=== PATIENT | female | born 1965 | race Caucasian/White ===

== ENCOUNTER 2024-11-25 15:32 | Inpatient (IN) | payer BC, SELFPAY ==
[2024-11-25] VITALS (93 sets, daily range): BP systolic 78–114; BP diastolic 33–75; PULSE 64–124; RESP 11–33; TEMP 36.8–38.2; O2SAT 91–100
--- NOTE | 2024-11-25 15:30 | RT.EKG_ITS ---
APPROVED REPORT Exam: Resting ECG Reason for Exam: weakness Patient Location: E HR:109 bpm ECG Measurements Heart Rate 109 AXIS AK 142 P 60 QRSd 84 QRS 54 QT 312 T 23 QTc 421 Conclusion Sinus tachycardia [address] specifici st change no stemi
--- NOTE | 2024-11-25 15:45 | DI.CT_ITS ---
Exam(s) CT ABDOMEN PELVIS W EXAM: CT ABDOMEN PELVIS W CLINICAL HISTORY: abdominal pain, fever, vomiting. TECHNIQUE: Imaging Protocol: Axial computed tomography images with coronal and sagittal reformatted images were created and reviewed CONTRAST MATERIAL: Intravenous: Omnipaque-350 75cc Oral: None COMPARISON: No exams were available for comparison FINDINGS: VISUALIZED LUNG BASES: Mild subpleural increased markings in both lung bases, specifically in the pos terior basal segments of both lower lobes. There are no pleural effusions. ABDOMEN: There is no ascites. LIVER: There are no focal hepatic lesions evident. No dilated intrahepatic ducts. GALLBLADDER/BILIARY: Gallbladder surgically absent. CBD is not dilated. PANCREAS: No evidence of pancreatic mass nor dilatation of the pancreatic duct. SPLEEN: Spleen is not enlarged. No obvious intrasplenic lesions. Splenic and portal veins are paten t. ADRENALS: There are no significant adrenal masses. KIDNEYS:No cysts evident. No solid renal masses. No calculi nor hydronephrosis.. ABDOMINAL AORTA: Abdominal aorta is not enlarged. LYMPH NODES:There is no retroperitoneal nor paraaortic adenopathy. ABDOMINAL WALL: No evidence of significant anterior abdominal wall nor inguinal hernia. GI: There is no evidence of bowel obstruction, free air, nor abscess. Moderate amount of increased fecal material is noted in the colon and rectum. PELVIS: GI: No evidence of appendicitis.No evidence of sigmoid diverticulitis. LYMPH NODES: There is no intrapelvic nor inguinal adenopathy. REPRODUCTIVE: Uterus retroverted. There are no abnormal adnexal findings. There is no free fluid in the pelvis. URINARY BLADDER: No calculi nor obvious masses evident OSSEOUS: No fractures and no significant osseous lesions. IMPRESSION: 1. Gallbladder surgically absent. The biliary tree is not dilated. 2. No evidence of bowel obstruction, free air, nor abscess. 3. No acute findings in the abdomen pelvis. 4. RADIATION DOSE DELIVERED: 614.81mGy.cm Total DLP DATA REPOSITORY: All CT scans at this facility are submitted to the National Radiology Data Registry (NRDR) Dose Index Registry (DIR) with the [employer] (ACR). RADIATION OPTIMIZATION: All CT scans at this facility use at least one of these dose optimization te chniques: automated exposure control; mA and/or kV adjustment per patient size (includes targeted exa ms where dose is matched to clinical indication); or iterative reconstruction.
--- NOTE | 2024-11-25 15:47 | DI.RAD_ITS ---
Exam(s) XR CHEST 2V PA LATERAL EXAM: XR CHEST 2V PA LATERAL CLINICAL HISTORY: sepsis. TECHNIQUE: 2D digital imaging was performed. COMPARISON: No exams were available for comparison FINDINGS: 2 views: Heart size is normal. The mediastinum is not widened. Lungs are clear. No infiltrates nor pleural effusions. IMPRESSION: No acute pulmonary findings. DATA REPOSITORY: RADIATION DOSE DELIVERED:
[2024-11-25] MEDS: Normal Saline 1,000 ML 1000 ML IV ×2 (15:58→16:31)
[2024-11-25] MEDS: ACETAMINOPHEN 500 MG/50 ML BAG 200 MG IVPB (15:59)
[2024-11-25] MEDS: Hydrocortisone SOD SUC. 100 MG VIAL IVP ×2 (15:59→23:44)
[2024-11-25 16:01] LABS: Abs Immature Grans 0.03 10^3/uL (0.0-0.06); Absolute Basophil Count 0.07 10^3/uL (0.0-0.2); Absolute Eosinophil Count 0.08 10^3/uL (0.0-0.7); Absolute Monocyte Count 1.09 10^3/uL (0.1-0.8); Absolute Neutrophil Count 5.88 10^3/uL (1.2-6.7); Basophils % 0.8 %; Eosinophils % 0.9 %; HCT 46.5 % (36.0-46.0); HGB 15.5 g/dL (11.2-15.7); Immature Grans % 0.3 %; Lymphocytes % 22.7 %; MCH 29.6 pg (27.0-33.0); MCHC 33.3 % (32.0-36.0); MCV 89 fL (80-95); MPV 9.3 fL (8.0-11.0); Monocytes % 11.8 %; Neutrophils % 63.5 %; Platelet Count 250 10^3/uL (130-400); RBC 5.23 10^6/uL (3.93-5.22); RDW 12.4 % (11.7-14.6); RDW-SD 40.7 fL; WBC 9.25 10^3/uL (4.4-10.8)
[2024-11-25 16:02] LABS: BE (Venous) 3 mmol/L (-2-3); HCO3 (Venous) 27 mmol/L (23-28); Lactate 0.9 mmol/L (<or=2.0); O2 Sat (Venous) 65 %; TCO2 (Venous) 24 mmol/L (24-29); pCO2 (Venous) 43 mmHg (41-51); pH (Venous) 7.41 (7.31-7.41); pO2 (Venous) 31 mmHg
[2024-11-25] MEDS: cefTRIAXone 2 GM/50 ML BAG IVPB (16:21)
[2024-11-25 16:31] LABS: ALT 33 U/L (14-59); AST 32 U/L (15-37); Albumin 4.3 g/dL (3.4-5.0); Alkaline Phosphatase 69 U/L (46-116); Anion Gap 8.6 mmol/L (3-11); BUN 19 mg/dL (7-18); Bilirubin, Total 0.9 mg/dL (0.2-1.0); CO2 28.4 mmol/L (21.0-32.0); CREATININE 1.3 mg/dL (0.55-1.02); Calcium 9.6 mg/dL (8.5-10.1); Chloride 97 mmol/L (98-107); Estimated GFR 47.37 (mL/min/1.73m2); Glucose 109 mg/dL (74-106); Lipase 60 U/L (<78); Magnesium 1.6 mg/dL (1.8-2.4); Potassium 3.6 mmol/L (3.5-5.1); Sodium 134 mmol/L (136-145); Total Protein 8.5 g/dL (6.4-8.2); Troponin I 10 ng/L (<or=51)
[2024-11-25] MEDS: Omnipaque 350 MG/ML 100 ML BTL IJ (17:01)
[2024-11-25] MEDS: Normal Saline - Diluent 50 ML VIAL IJ (17:02)
[2024-11-25 17:13] LABS: Bilirubin Negative (Negative); Blood Trace-lysed (Negative); Clarity Clear (Clear); Glucose Negative (Negative); Ketones Negative (Negative); Leukocyte Esterase Negative (Negative); Nitrite Negative (Negative); Specific Gravity 1.015 (1.005-1.025); Urobilinogen 0.2 mg/dL (Up to 0.2); pH 5.5 (5-8)
[2024-11-25] MEDS: Lactated Ringers 1,000 ML 1000 ML IV (17:20)
[2024-11-25 17:33] LABS: Bacteria Rare HPF (Negative); C & S Indicated? No; Casts Negative LPF (Negative); Crystals Negative HPF (Negative); Epithelial Cells Rare HPF (Negative); Mucus Trace (Negative); RBC 0-2 HPF (0-2); WBC Negative HPF (0-5)
[2024-11-25 17:51] LABS: Troponin I 21 ng/L (<or=51)
--- NOTE | 2024-11-25 17:52 | DI.VRAD_ITS ---
PROCEDURE INFORMATION: Exam: XR Chest Exam date and time: 11/25/2024 5:11 PM Age: 59 years old Clinical indication: Other: Sepsis TECHNIQUE: Imaging protocol: Radiologic exam of the chest. Views: 2 views. COMPARISON: CT ABDOMEN PELVIS W 11/25/2024 4:56 PM FINDINGS: Lungs: Unremarkable. No consolidation. Pleural spaces: Unremarkable. No pleural effusion. No pneumothorax. Heart/Mediastinum: Unremarkable. No cardiomegaly. Bones/joints: Unremarkable. IMPRESSION: No acute findings. Dictated and Authenticated by: Ann Vee MD. Orderin Vy Arguelles MD
--- NOTE | 2024-11-25 17:52 | DI.VRAD_ITS ---
PROCEDURE INFORMATION: Exam: CT Abdomen And Pelvis With Contrast Exam date and time: 11/25/2024 4:56 PM Age: 59 years old Clinical indication: Other: Abdominal pain, fever, vomiting TECHNIQUE: Imaging protocol: Computed tomography of the abdomen and pelvis with contrast. Contrast material: 350; Contrast volume: 75 ml; Contrast route: INTRAVENOUS (IV); COMPARISON: No relevant prior studies available. FINDINGS: Lungs: Dependent atelectasis in the lung bases. Liver: Normal. No mass. Gallbladder and biliary ducts: Cholecystectomy. Pancreas: Normal. No ductal dilation. Spleen: Normal. No splenomegaly. Adrenal glands: Normal. No mass. Kidneys and ureters: Normal. No hydronephrosis. Stomach and bowel: Large amount of stool in the colon.. No obstruction. No mucosal thickening. Appendix: No evidence of appendicitis. Intraperitoneal space: Unremarkable. No free air. No significant fluid collection. Vasculature: Unremarkable. No abdominal aortic aneurysm. Lymph nodes: Unremarkable. No enlarged lymph nodes. Urinary bladder: Unremarkable as visualized. Reproductive: Unremarkable as visualized. Bones/joints: Unremarkable. No acute fracture. Soft tissues: Unremarkable. IMPRESSION: No acute findings. Constipation. Dictated and Authenticated by: Ann Vee MD. Orderin Vy Arguelles MD
[2024-11-25] MEDS: Prochlorperazine 10 MG/2 ML VIAL 5 MG IVP (18:27)
--- NOTE | 2024-11-25 18:34 | W.PM.HP.N ---
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 She had no source of infection but appeared septic with tachycardia, hypotension and fever of 38 ?C. MD did not reveal a source of her fever. She had no signs or symptoms of meningismus with her headache and her headache cleared with treatment of her fever. She was initiated on Rocephin 2 g IV every 12 hours and there is no indication for lumbar puncture at the time of admission. She also was initiated on doxycycline 100 mg IV every 12 hours. She was initiated on stress dose steroids with hydrocortisone 100 mg IV every 8 hours. She did require pressor support with normal creatinine in the ED and this was continued in the ICU. She was also IV fluid resuscitated. She will continue on close monitoring in the ICU with blood pressure support, follow-up cultures and continue IV fluids along with a broad-spectrum antibiotic coverage. She is a full code. (2) Adrenal insufficiency: Status: Chronic Assessment and plan: Patient will be placed on stress dose steroids with hydrocortisone 100 mg IV every 8 hours. (3) Oral thrush: Start date: 11/25/24 Status: Acute Assessment and plan: Nystatin oral suspension swish and swallow 3 times daily. (4) Hypothyroidism (acquired): Status: Chronic Assessment and plan: Continue outpatient supplement. TSH was normal. (5) Hypotension, chronic: Status: Chronic Assessment and plan: Continue Florinef with patient now on norepinephrine for blood pressure support because of her fever and acute septic shock. (6) Depression: Status: Chronic Assessment and plan: Continue outpatient sertraline. History of Present Illness History of Present Illness Chief Complaint: Feeling ill for 24 hours with bodyaches, chills and headache. 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 She knows it when she feels ill she needs to be seen in the hospital because of her adrenal insufficiency and need for stress dose steroids as well as full evaluation for complications. She presented to the ED with 24-hour history of feeling ill with bodyaches, chills and headache and did manifest a fever in the ED. She was treated in the ED for her fever and her headache went away with no complaints of stiff neck or signs of meningismus by exam. Full evaluation did not reveal source of fever with tachycardia and hypotension with normal lactate and anion gap. Her creatinine was slightly elevated from her baseline and she had hyponatremia. Her magnesium was also low. She had her magnesium repleted with oral therapy in the ED and an IV therapy once admitted to the ICU. With interview in the ICU the patient said that she always knew to come to the hospital when she felt ill because of her Jackson's disease and the possibility of getting ill quickly. She did take a low-dose of her stress dose steroids at home. In the ED she was given hydrocortisone 100 mg IV. Reviewing her history she did not complain of any cough, urinary symptoms or GI symptoms. She does have chronic hypotension on Florinef with which she has been compliant. She also has hypothyroidism this has been stable on supplement. The patient had a decreased systolic blood pressure below 80 mmHg in the ED and was initiated on norepinephrine. She was admitted to the ICU for close monitoring with broad-spectrum antibiotic coverage after blood cultures, urine culture and tickborne disease screening. She is a full code. Review of Systems Narrative: 13 point review of systems otherwise unrevealing or stable. PFSH All Active Problems (Updated 11/26/24 @ 06:04 by Esteban Whitehead) Oral thrush (Acute) Acute adrenal insufficiency (Acute) Shock (Acute) SIRS (systemic inflammatory response syndrome) (Acute) Depression (Chronic) Hypotension, chronic (Chronic) Hypothyroidism (acquired) (Chronic) Oral thrush (Acute) Adrenal insufficiency (Chronic) Sepsis (Acute) Social History Smoking/Tobacco Use Status: Former Tobacco Use Quit Date: 11/25/86 Tobacco: How many years used: 3 Smoking risk assessment performed?: Yes Alcohol Intake: former Substance use type: does not use Housing: apartment Do you feel safe at home: Yes Do you feel safe in your relationship?: Yes Meds Allergies and Home Medications Allergies Allergy/AdvReac Type Severity Reaction Status Date / Time adhesive tape AdvReac Intermediate Skin Rash Unverified 11/25/24 19:01 Penicillins AdvReac Intermediate Skin Rash Unverified 11/25/24 19:01 sulfamethoxazole (From AdvReac Intermediate mouth sores Unverified 11/25/24 19:01 Sulfamethoxazole-Trimethoprim) trimethoprim (From AdvReac Intermediate mouth sores Unverified 11/25/24 19:01 Sulfamethoxazole-Trimethoprim) Home Medications ?Medication ?Instructions ?Recorded ?Confirmed ?Type B-complex with vitamin C 1 tab PO DAILY 11/25/24 11/25/24 History calcium citrate 600 mg PO DAILY 11/25/24 11/25/24 History cholecalciferol (vitamin D3) 25 25 mcg PO DAILY 11/25/24 11/25/24 History mcg (1,000 unit) capsule cyanocobalamin (vitamin B-12) 125 mcg PO DAILY 11/25/24 11/25/24 History 1,000 mcg capsule fludrocortisone 0.1 mg tablet 0.1 mg PO DAILY 11/25/24 11/25/24 History hydrocortisone 5 mg tablet 5 mg PO BID 11/25/24 11/25/24 History levothyroxine 112 mcg tablet 112 mcg PO DAILY 11/25/24 11/25/24 History melatonin 3 mg capsule 3 mg PO HS PRN 11/25/24 11/25/24 History sertraline 100 mg tablet 100 mg PO DAILY 11/25/24 11/25/24 History simethicone 180 mg capsule 180 mg PO DAILY PRN 11/25/24 11/25/24 History (Anti-Gas Ultra Strength) Exam Narrative Exam Narrative: General: Moderately obese, sleeping when I approached patient but arousable easily with normal conversation. She is in no acute distress. She is alert and oriented x 3. HEENT: Normocephalic, eyes with pupils equal and reactive to light symmetrically, extraocular movement intact and sclera anicteric. Fair dentition. Oropharynx dry with thrush. Neck: Supple without JVD. Back: Kyphotic without CVA tenderness. Lungs: Fair aeration with no focalizing rales or rhonchi. No expiratory wheeze. Breast: Exam deferred. Heart: Regular rate and rhythm with no murmurs gallops appreciated. Abdomen: Slightly obese contour, soft to palpation with no focalizing tenderness or guarding and no rebound. No palpable hepatosplenomegaly. Bowel sounds positive in all quadrants. Genitalia/rectal: Exam deferred. Skin: Normal color, warm and dry. Neuro: Cranial nerves II through XII gross intact, no focalized motor deficits. No tremor. Extremities: Without clubbing, cyanosis or pitting edema. Peripheral pulses intact. Psych: Flattened affect and depressed mood but no abnormal thought processes. Remote and recent memory grossly intact. Results Imaging Imaging Studies: Patient Name: Allison Larry Unit #: [id number] Loc: ER Ordering Provider: Status: REG ER Primary Care Provider: Unknown,Unknown Date of Exam: 11/25/24 Sex: F Exam: CT Abdomen And Pelvis With Contrast Exam date and time: 11/25/2024 4:56 PM Age: 59 years old Clinical indication: Other: Abdominal pain, fever, vomiting TECHNIQUE: Imaging protocol: Computed tomography of the abdomen and pelvis with contrast. Contrast material: 350; Contrast volume: 75 ml; Contrast route: INTRAVENOUS (IV); COMPARISON: No relevant prior studies available. FINDINGS: Lungs: Dependent atelectasis in the lung bases. Liver: Normal. No mass. Gallbladder and biliary ducts: Cholecystectomy. Pancreas: Normal. No ductal dilation. Spleen: Normal. No splenomegaly. Adrenal glands: Normal. No mass. Kidneys and ureters: Normal. No hydronephrosis. Stomach and bowel: Large amount of stool in the colon.. No obstruction. No mucosal thickening. Appendix: No evidence of appendicitis. Intraperitoneal space: Unremarkable. No free air. No significant fluid collection. Vasculature: Unremarkable. No abdominal aortic aneurysm. Lymph nodes: Unremarkable. No enlarged lymph nodes. Urinary bladder: Unremarkable as visualized. Reproductive: Unremarkable as visualized. Bones/joints: Unremarkable. No acute fracture. Soft tissues: Unremarkable. IMPRESSION: No acute findings. Constipation. Exam: XR Chest Exam date and time: 11/25/2024 5:11 PM Age: 59 years old Clinical indication: Other: Sepsis TECHNIQUE: Imaging protocol: Radiologic exam of the chest. Views: 2 views. COMPARISON: CT ABDOMEN PELVIS W 11/25/2024 4:56 PM FINDINGS: Lungs: Unremarkable. No consolidation. Pleural spaces: Unremarkable. No pleural effusion. No pneumothorax. Heart/Mediastinum: Unremarkable. No cardiomegaly. Bones/joints: Unremarkable. IMPRESSION: No acute findings. Labs 11/25/24 15:53 11/25/24 15:53 Labs: Laboratory Results - last 24 hr 11/25/24 11/25/24 11/25/24 15:53 15:53 15:53 WBC 9.25 RBC 5.23 H Hgb 15.5 Hct 46.5 H MCV 89 MCH 29.6 MCHC 33.3 RDW 12.4 Plt Count 250 MPV 9.3 Immature Gran % 0.3 Neutrophils % 63.5 Lymphocytes % 22.7 Monocytes % 11.8 Eosinophils % 0.9 Basophils % 0.8 Nucleated RBC % 0.0 Absolute Neutrophils 5.88 Absolute Lymphocytes 2.10 Absolute Monocytes 1.09 H Absolute Eosinophils 0.08 Absolute Basophils 0.07 VBG pH VBG pCO2 VBG pO2 VBG HCO3 VBG Total CO2 VBG O2 Saturation VBG Base Excess VBG Lactate Sodium 134 L Potassium 3.6 Chloride 97 L Carbon Dioxide 28.4 Anion Gap 8.6 BUN 19 H Creatinine 1.3 H Est GFR (CKD-EPI 2020) 47.37 Glucose 109 H Calcium 9.6 Magnesium 1.6 L Cancelled Total Bilirubin 0.9 AST 32 ALT 33 Alkaline Phosphatase 69 Troponin I 10 Total Protein 8.5 H Albumin 4.3 Lipase 60 TSH 1.00 Cancelled Urine Color Urine Clarity Urine pH Ur Specific [place] Urine Protein Urine Ketones Urine Blood Urine Nitrite Urine Bilirubin Urine Urobilinogen Ur Leukocyte Esterase Urine RBC Urine WBC Ur Epithelial Cells Urine Crystals Urine Bacteria Urine Casts Urine Mucus Ur Culture Indicated? Urine Glucose 11/25/24 11/25/24 11/25/24 15:55 16:57 17:24 WBC RBC Hgb Hct MCV MCH MCHC RDW Plt Count MPV Immature Gran % Neutrophils % Lymphocytes % Monocytes % Eosinophils % Basophils % Nucleated RBC % Absolute Neutrophils Absolute Lymphocytes Absolute Monocytes Absolute Eosinophils Absolute Basophils VBG pH 7.41 VBG pCO2 43 VBG pO2 31 VBG HCO3 27 VBG Total CO2 24 VBG O2 Saturation 65 VBG Base Excess 3 VBG Lactate 0.9 Sodium Potassium Chloride Carbon Dioxide Anion Gap BUN Creatinine Est GFR (CKD-EPI 2020) Glucose Calcium Magnesium Total Bilirubin AST ALT Alkaline Phosphatase Troponin I 21 Total Protein Albumin Lipase TSH Urine Color Yellow Urine Clarity Clear Urine pH 5.5 Ur Specific [place] 1.015 Urine Protein Negative Urine Ketones Negative Urine Blood Trace-lysed H Urine Nitrite Negative Urine Bilirubin Negative Urine Urobilinogen 0.2 Ur Leukocyte Esterase Negative Urine RBC 0-2 Urine WBC Negative Ur Epithelial Cells Rare Urine Crystals Negative Urine Bacteria Rare Urine Casts Negative Urine Mucus Trace Ur Culture Indicated? No Urine Glucose Negative Last Vital Signs Temp 38.2 C H 11/25/24 15:34 Pulse 96 H 11/25/24 18:31 Resp 24 11/25/24 18:31 BP 80/49 L 11/25/24 18:31 Pulse Ox 96 11/25/24 18:31 Time Spent Time spent with Patient: >75 minutes Time was spent: preparing to see the patient(eg.review tests), obtaining and/or reviewing separately otained hiistory, ordering medications,tests, procedures, indepentently interpreting results and care coordination
[2024-11-25] MEDS: Lactated Ringers 500 ML IV (18:47)
[2024-11-25] MEDS: Magnesium Oxide 400 MG TAB 800 MG PO (19:15)
[2024-11-25 19:33] LABS: COVID-19 PCR Negative (Negative); Influenza A PCR Negative (Negative); Influenza B PCR Negative (Negative); RSV PCR Negative (Negative)
[2024-11-25 19:36] LABS: Source Nasopharynx
[2024-11-25] MEDS: Norepinephrine in D5W 8 MG/250 ML BAG 9.375 MG IV (19:43)
--- NOTE | 2024-11-25 20:09 | W.PCEDHO ---
Registration Status: Primary Language: Preferred Language: ED Information & Data Chief Complaint GenMedical 11/25/24 17:14 Chief Complaint GenMedical 11/25/24 15:34 Triage Note Patient complaining of fever 11/25/24 15:34 , vomiting and out of it for 2 days Most Recent Vital Signs Temperature 38.2 C H 11/25/24 15:34 Pulse 72 11/25/24 20:01 Pulse 72 11/25/24 20:01 Respiratory Rate 20 11/25/24 20:01 Respiratory Effort Normal 11/25/24 17:14 Respiratory Depth Normal 11/25/24 17:14 Blood Pressure 106/61 11/25/24 20:00 Blood Pressure Mean 76 11/25/24 20:00 Pulse Oximetry 95 11/25/24 20:01 Comment manual 11/25/24 18:30 Allergies adhesive tape Adverse Reaction (Intermediate, Unverified 11/25/24 19:01) Skin Rash Penicillins Adverse Reaction (Intermediate, Unverified 11/25/24 19:01) Skin Rash sulfamethoxazole (From Sulfamethoxazole-Trimethoprim) Adverse Reaction (Intermediate, Unverified 11/25/24 19:01) mouth sores trimethoprim (From Sulfamethoxazole-Trimethoprim) Adverse Reaction (Intermediate, Unverified 11/25/24 19:01) mouth sores Precautions Isolation Standard precaution 11/25/24 17:14 Active Medications Generic Name Dose Route Start Last Admin Trade Name Freq PRN Reason Stop Dose Admin Ceftriaxone Sodium/Dextrose 2 gm in 50 mls @ 100 mls/hr 11/25/24 16:00 11/25/24 17:21 Rocephin IVPB Infused Q24H PIERRE Infusion Norepinephrine Bitartrate 8 mg in 250 mls @ 9.375 mls/hr 11/25/24 19:45 11/25/24 19:43 IV 5 mcg/min INFUSION PIERRE 9.375 mls/hr Administration Protocol 5 MCG/MIN Iohexol 100 ml 11/25/24 17:15 11/25/24 17:01 Omnipaque 350 Mg/Ml 100 Ml Btl IJ 12/25/24 23:59 75 ml DIRECTED PIERRE Administration Sodium Chloride 50 ml 11/25/24 17:15 11/25/24 17:02 Normal Saline - Diluent 50 Ml Vial IJ 50 ml .FOR DI USE PIERRE Administration IV IV Catheter Type [Left Peripheral IV Antecubital] IV Catheter Type [Right Peripheral IV Antecubital] IV Catheter Gauge [Left 18 Antecubital] IV Catheter Gauge [Right 18 Antecubital] Diagnostics 11/25/24 11/25/24 11/25/24 Range/Units 18:49 17:24 16:57 WBC (4.4-10.8) 10^3/uL RBC (3.93-5.22) 10^6/uL Hgb (11.2-15.7) g/dL Hct (36.0-46.0) % MCV (80-95) fL MCH (27.0-33.0) pg MCHC (32.0-36.0) % RDW (11.7-14.6) % Plt Count (130-400) 10^3/uL MPV (8.0-11.0) fL Immature Gran % % Neutrophils % % Lymphocytes % % Monocytes % % Eosinophils % % Basophils % % Nucleated RBC % (0.0-0.3) % Absolute Neutrophils (1.2-6.7) 10^3/uL Absolute Lymphocytes (1.2-3.4) 10^3/uL Absolute Monocytes (0.1-0.8) 10^3/uL Absolute Eosinophils (0.0-0.7) 10^3/uL Absolute Basophils (0.0-0.2) 10^3/uL VBG pH (7.31-7.41) VBG pCO2 (41-51) mmHg VBG pO2 mmHg VBG HCO3 (23-28) mmol/L VBG Total CO2 (24-29) mmol/L VBG O2 Saturation % VBG Base Excess (-2-3) mmol/L VBG Lactate (<or=2.0) mmol/L Sodium (136-145) mmol/L Potassium (3.5-5.1) mmol/L Chloride (98-107) mmol/L Carbon Dioxide (21.0-32.0) mmol/L Anion Gap (3-11) mmol/L BUN (7-18) mg/dL Creatinine (0.55-1.02) mg/dL Est GFR (CKD-EPI 2020) (mL/min/1.73m2) Glucose (74-106) mg/dL Calcium (8.5-10.1) mg/dL Magnesium (1.8-2.4) mg/dL Total Bilirubin (0.2-1.0) mg/dL AST (15-37) U/L ALT (14-59) U/L Alkaline Phosphatase (46-116) U/L Troponin I 21 (<or=51) ng/L Total Protein (6.4-8.2) g/dL Albumin (3.4-5.0) g/dL Lipase (<78) U/L TSH (0.36-3.74) uIU/mL Urine Color Yellow (Yellow) Urine Clarity Clear (Clear) Urine pH 5.5 (5-8) Ur Specific [place] 1.015 (1.005-1.025) Urine Protein Negative (Neg-Trace) mg/dL Urine Ketones Negative (Negative) mg/dL Urine Blood Trace-lysed H (Negative) Urine Nitrite Negative (Negative) Urine Bilirubin Negative (Negative) Urine Urobilinogen 0.2 (Up to 0.2) mg/dL Ur Leukocyte Esterase Negative (Negative) Urine RBC 0-2 (0-2) HPF Urine WBC Negative (0-5) HPF Ur Epithelial Cells Rare (Negative) HPF Urine Crystals Negative (Negative) HPF Urine Bacteria Rare (Negative) HPF Urine Casts Negative (Negative) LPF Urine Mucus Trace (Negative) Ur Culture Indicated? No Urine Glucose Negative (Negative) mg/dL B. divergens/MO-1 PCR Babesia duncani (PCR) Babesia microti DNA PCR Lyme Disease Antibody COVID-19 Source Nasopharynx SARS-CoV-2 (PCR) Negative (Negative) E.chaffeensis DNA (PCR) E.ewingii/canis DNA PCR E.muris eauclairensis (PCR) Influenza Type A (PCR) Negative (Negative) Influenza Type B (PCR) Negative (Negative) RSV (PCR) Negative (Negative) A. phagocytophilum (PCR) Blood B. miyamotoi (PCR) 11/25/24 11/25/24 11/25/24 Range/Units 15:55 15:53 15:53 WBC (4.4-10.8) 10^3/uL RBC (3.93-5.22) 10^6/uL Hgb (11.2-15.7) g/dL Hct (36.0-46.0) % MCV (80-95) fL MCH (27.0-33.0) pg MCHC (32.0-36.0) % RDW (11.7-14.6) % Plt Count (130-400) 10^3/uL MPV (8.0-11.0) fL Immature Gran % % Neutrophils % % Lymphocytes % % Monocytes % % Eosinophils % % Basophils % % Nucleated RBC % (0.0-0.3) % Absolute Neutrophils (1.2-6.7) 10^3/uL Absolute Lymphocytes (1.2-3.4) 10^3/uL Absolute Monocytes (0.1-0.8) 10^3/uL Absolute Eosinophils (0.0-0.7) 10^3/uL Absolute Basophils (0.0-0.2) 10^3/uL VBG pH 7.41 (7.31-7.41) VBG pCO2 43 (41-51) mmHg VBG pO2 31 mmHg VBG HCO3 27 (23-28) mmol/L VBG Total CO2 24 (24-29) mmol/L VBG O2 Saturation 65 % VBG Base Excess 3 (-2-3) mmol/L VBG Lactate 0.9 (<or=2.0) mmol/L Sodium (136-145) mmol/L Potassium (3.5-5.1) mmol/L Chloride (98-107) mmol/L Carbon Dioxide (21.0-32.0) mmol/L Anion Gap (3-11) mmol/L BUN (7-18) mg/dL Creatinine (0.55-1.02) mg/dL Est GFR (CKD-EPI 2020) (mL/min/1.73m2) Glucose (74-106) mg/dL Calcium (8.5-10.1) mg/dL Magnesium Cancelled (1.8-2.4) mg/dL Total Bilirubin 0.9 (0.2-1.0) mg/dL AST 32 (15-37) U/L ALT 33 (14-59) U/L Alkaline Phosphatase 69 (46-116) U/L Troponin I 10 (<or=51) ng/L Total Protein 8.5 H (6.4-8.2) g/dL Albumin 4.3 (3.4-5.0) g/dL Lipase 60 (<78) U/L TSH Cancelled 1.00 (0.36-3.74) uIU/mL Urine Color (Yellow) Urine Clarity (Clear) Urine pH (5-8) Ur Specific [place] (1.005-1.025) Urine Protein (Neg-Trace) mg/dL Urine Ketones (Negative) mg/dL Urine Blood (Negative) Urine Nitrite (Negative) Urine Bilirubin (Negative) Urine Urobilinogen (Up to 0.2) mg/dL Ur Leukocyte Esterase (Negative) Urine RBC (0-2) HPF Urine WBC (0-5) HPF Ur Epithelial Cells (Negative) HPF Urine Crystals (Negative) HPF Urine Bacteria (Negative) HPF Urine Casts (Negative) LPF Urine Mucus (Negative) Ur Culture Indicated? Urine Glucose (Negative) mg/dL B. divergens/MO-1 PCR Pending Babesia duncani (PCR) Pending Babesia microti DNA PCR Pending Lyme Disease Antibody Pending COVID-19 Source SARS-CoV-2 (PCR) (Negative) E.chaffeensis DNA (PCR) Pending E.ewingii/canis DNA PCR Pending E.muris eauclairensis (PCR) Pending Influenza Type A (PCR) (Negative) Influenza Type B (PCR) (Negative) RSV (PCR) (Negative) A. phagocytophilum (PCR) Pending Blood B. miyamotoi (PCR) Pending 11/25/24 Range/Units 15:53 WBC 9.25 (4.4-10.8) 10^3/uL RBC 5.23 H (3.93-5.22) 10^6/uL Hgb 15.5 (11.2-15.7) g/dL Hct 46.5 H (36.0-46.0) % MCV 89 (80-95) fL MCH 29.6 (27.0-33.0) pg MCHC 33.3 (32.0-36.0) % RDW 12.4 (11.7-14.6) % Plt Count 250 (130-400) 10^3/uL MPV 9.3 (8.0-11.0) fL Immature Gran % 0.3 % Neutrophils % 63.5 % Lymphocytes % 22.7 % Monocytes % 11.8 % Eosinophils % 0.9 % Basophils % 0.8 % Nucleated RBC % 0.0 (0.0-0.3) % Absolute Neutrophils 5.88 (1.2-6.7) 10^3/uL Absolute Lymphocytes 2.10 (1.2-3.4) 10^3/uL Absolute Monocytes 1.09 H (0.1-0.8) 10^3/uL Absolute Eosinophils 0.08 (0.0-0.7) 10^3/uL Absolute Basophils 0.07 (0.0-0.2) 10^3/uL VBG pH (7.31-7.41) VBG pCO2 (41-51) mmHg VBG pO2 mmHg VBG HCO3 (23-28) mmol/L VBG Total CO2 (24-29) mmol/L VBG O2 Saturation % VBG Base Excess (-2-3) mmol/L VBG Lactate (<or=2.0) mmol/L Sodium 134 L (136-145) mmol/L Potassium 3.6 (3.5-5.1) mmol/L Chloride 97 L (98-107) mmol/L Carbon Dioxide 28.4 (21.0-32.0) mmol/L Anion Gap 8.6 (3-11) mmol/L BUN 19 H (7-18) mg/dL Creatinine 1.3 H (0.55-1.02) mg/dL Est GFR (CKD-EPI 2020) 47.37 (mL/min/1.73m2) Glucose 109 H (74-106) mg/dL Calcium 9.6 (8.5-10.1) mg/dL Magnesium 1.6 L (1.8-2.4) mg/dL Total Bilirubin (0.2-1.0) mg/dL AST (15-37) U/L ALT (14-59) U/L Alkaline Phosphatase (46-116) U/L Troponin I (<or=51) ng/L Total Protein (6.4-8.2) g/dL Albumin (3.4-5.0) g/dL Lipase (<78) U/L TSH (0.36-3.74) uIU/mL Urine Color (Yellow) Urine Clarity (Clear) Urine pH (5-8) Ur Specific [place] (1.005-1.025) Urine Protein (Neg-Trace) mg/dL Urine Ketones (Negative) mg/dL Urine Blood (Negative) Urine Nitrite (Negative) Urine Bilirubin (Negative) Urine Urobilinogen (Up to 0.2) mg/dL Ur Leukocyte Esterase (Negative) Urine RBC (0-2) HPF Urine WBC (0-5) HPF Ur Epithelial Cells (Negative) HPF Urine Crystals (Negative) HPF Urine Bacteria (Negative) HPF Urine Casts (Negative) LPF Urine Mucus (Negative) Ur Culture Indicated? Urine Glucose (Negative) mg/dL B. divergens/MO-1 PCR Babesia duncani (PCR) Babesia microti DNA PCR Lyme Disease Antibody COVID-19 Source SARS-CoV-2 (PCR) (Negative) E.chaffeensis DNA (PCR) E.ewingii/canis DNA PCR E.muris eauclairensis (PCR) Influenza Type A (PCR) (Negative) Influenza Type B (PCR) (Negative) RSV (PCR) (Negative) A. phagocytophilum (PCR) Blood B. miyamotoi (PCR) 11/25/24 16:20 Blood Culture - Pending Blood 11/25/24 15:53 Blood Culture - Pending Blood [id number] Documentation Fingerstick Glucose Start: 11/25/24 15:40 Freq: Status: Active Protocol: Activity Type Activity Date Activity User E-sign Co-sign Detail Recorded Client Recorded Date Recorded By Document 11/25/24 15:40 BKG DAWENDYON(10) [id number] 11/25/24 15:40 BKG DAEMON(10) Intake and Output - 24 Hour Total 11/25/24 15:32 thru 11/25/24 19:43 Intake Total 3600 Output Total 670 Balance 2930 Weight 79.379 kg Intake: IV 3600 Output: Urine 670 Other: # Voids 1 Falls Risk Assessment History of Falls No History 11/25/24 17:14 Contributing Factors Unstable 11/25/24 17:14 Ambulatory Aids Independent 11/25/24 17:14 Tubes/Lines With any additional score 11/25/24 17:14 Gait Evaluation No gait disturbance 11/25/24 17:14 Cognition No cognitive impairment 11/25/24 17:14 Fall Total Score 23 11/25/24 17:14 Level of Risk Standard/Low Risk 11/25/24 17:14 Problems Depression (Chronic) Hypotension, chronic (Chronic) Hypothyroidism (acquired) (Chronic) Oral thrush (Acute) Adrenal insufficiency (Acute) Sepsis (Acute) v v v v v v v v v Sending and/or Receiving Nurses: Please use comment section below to note any information pertinent to the patient hand-off not included above. Information / Comments: Report received from: Lindy Page RN
--- NOTE | 2024-11-25 20:59 | W.ED.GENAD ---
Discharge Plan Disposition Patient Disposition: Admit to [facility] Condition: Critical Discharge Details Clinical Impression: SIRS (systemic inflammatory response syndrome), Shock, Acute adrenal insufficiency, Oral thrush Admit Date/Time: 11/25/24 19:15 Admit Provider: Esteban Whitehead Attending Provider: Esteban Whitehead Primary Care Provider: Unknown,Unknown ED Provider: Kindra Mcclellan Discharge Data Discharge Date/Time-TO BE ENTERED AT DEPARTURE: 11/25/24 21:05 HPI General Date/Time Provider Initiated Documentation: 11/25/24 15:39. HPI Narrative: 59-year-old female with adrenal insufficiency/Person's disease and hypothyroidism, presenting with 24-hour history of nausea, vomiting, fever, and chills. Reports fatigue, intermittent headaches, and persistent nausea. No chest discomfort, tick bites, sick contacts, illicit drug use, alcohol consumption, tobacco use, stiff neck, significant neck pain, or urinary symptoms. Did not take stress dose steroids prior to arrival. Similar episode at [facility] in 06/2024 led to admission for suspected kidney injury, exact diagnosis unknown. Related Data Home Medications ?Medication ?Instructions ?Recorded ?Confirmed B-complex with vitamin C 1 tab PO DAILY 11/25/24 11/25/24 calcium citrate 600 mg PO DAILY 11/25/24 11/25/24 cholecalciferol (vitamin D3) 25 25 mcg PO DAILY 11/25/24 11/25/24 mcg (1,000 unit) capsule cyanocobalamin (vitamin B-12) 125 mcg PO DAILY 11/25/24 11/25/24 1,000 mcg capsule fludrocortisone 0.1 mg tablet 0.1 mg PO DAILY 11/25/24 11/25/24 hydrocortisone 5 mg tablet 5 mg PO BID 11/25/24 11/25/24 levothyroxine 112 mcg tablet 112 mcg PO DAILY 11/25/24 11/25/24 melatonin 3 mg capsule 3 mg PO HS PRN 11/25/24 11/25/24 sertraline 100 mg tablet 100 mg PO DAILY 11/25/24 11/25/24 simethicone 180 mg capsule 180 mg PO DAILY PRN 11/25/24 11/25/24 (Anti-Gas Ultra Strength) Allergies Allergy/AdvReac Type Severity Reaction Status Date / Time adhesive tape AdvReac Intermediate Skin Rash Unverified 11/25/24 19:01 Penicillins AdvReac Intermediate Skin Rash Unverified 11/25/24 19:01 sulfamethoxazole (From AdvReac Intermediate mouth sores Unverified 11/25/24 19:01 Sulfamethoxazole-Trimethoprim) trimethoprim (From AdvReac Intermediate mouth sores Unverified 11/25/24 19:01 Sulfamethoxazole-Trimethoprim) General Stated Complaint: GenMedical CHASE: 2 Exam Narrative Exam Narrative: General Appearance: Unwell, alert but tired, oriented x3. Vital signs: Within normal limits. HEENT: Pupils equal, round, reactive to light and accommodation. No meningismus. Respiratory: Lungs clear to auscultation. Cardiovascular: Sinus tachycardia, no murmur rub. Skin: No rashes or lesions. Neurological: Normal. Course Vital Signs Vital signs: Vital Signs Temperature 38.2 C H 11/25/24 15:34 Pulse 124 H 11/25/24 15:34 Blood Pressure 88/63 L 11/25/24 15:34 Pulse Oximetry 93 11/25/24 15:34 Temperature 37.0 C 11/25/24 20:15 Pulse 79 11/25/24 20:15 Pulse 80 11/25/24 20:15 Respiratory Rate 20 11/25/24 20:15 Respiratory Effort Normal 11/25/24 17:14 Respiratory Depth Normal 11/25/24 17:14 Blood Pressure 111/57 L 11/25/24 20:15 Blood Pressure Mean 75 11/25/24 20:15 Pulse Oximetry 97 11/25/24 20:15 Comment manual 11/25/24 18:30 Lab/Test Results Lab/Test Results: 11/25/24 16:20 Blood Blood Culture - Pending 11/25/24 15:53 Blood Blood Culture - Pending Laboratory Tests Range/Units 11/25/24 11/25/24 11/25/24 15:53 15:53 15:53 WBC (4.4-10.8) 10^3/uL 9.25 RBC (3.93-5.22) 10^6/uL 5.23 H Hgb (11.2-15.7) g/dL 15.5 Hct (36.0-46.0) % 46.5 H MCV (80-95) fL 89 MCH (27.0-33.0) pg 29.6 MCHC (32.0-36.0) % 33.3 RDW (11.7-14.6) % 12.4 Plt Count (130-400) 10^3/uL 250 MPV (8.0-11.0) fL 9.3 Immature Gran % % 0.3 Neutrophils % % 63.5 Lymphocytes % % 22.7 Monocytes % % 11.8 Eosinophils % % 0.9 Basophils % % 0.8 Nucleated RBC % (0.0-0.3) % 0.0 Absolute Neutrophils (1.2-6.7) 10^3/uL 5.88 Absolute Lymphocytes (1.2-3.4) 10^3/uL 2.10 Absolute Monocytes (0.1-0.8) 10^3/uL 1.09 H Absolute Eosinophils (0.0-0.7) 10^3/uL 0.08 Absolute Basophils (0.0-0.2) 10^3/uL 0.07 VBG pH (7.31-7.41) VBG pCO2 (41-51) mmHg VBG pO2 mmHg VBG HCO3 (23-28) mmol/L VBG Total CO2 (24-29) mmol/L VBG O2 Saturation % VBG Base Excess (-2-3) mmol/L VBG Lactate (<or=2.0) mmol/L Sodium (136-145) mmol/L 134 L Potassium (3.5-5.1) mmol/L 3.6 Chloride (98-107) mmol/L 97 L Carbon Dioxide (21.0-32.0) mmol/L 28.4 Anion Gap (3-11) mmol/L 8.6 BUN (7-18) mg/dL 19 H Creatinine (0.55-1.02) mg/dL 1.3 H Est GFR (CKD-EPI 2020) (mL/min/1.73m2) 47.37 Glucose (74-106) mg/dL 109 H Calcium (8.5-10.1) mg/dL 9.6 Magnesium (1.8-2.4) mg/dL 1.6 L Cancelled Total Bilirubin (0.2-1.0) mg/dL 0.9 AST (15-37) U/L 32 ALT (14-59) U/L 33 Alkaline Phosphatase (46-116) U/L 69 Troponin I (<or=51) ng/L 10 Total Protein (6.4-8.2) g/dL 8.5 H Albumin (3.4-5.0) g/dL 4.3 Lipase (<78) U/L 60 TSH (0.36-3.74) uIU/mL 1.00 Cancelled Urine Color (Yellow) Urine Clarity (Clear) Urine pH (5-8) Ur Specific [place] (1.005-1.025) Urine Protein (Neg-Trace) mg/dL Urine Ketones (Negative) mg/dL Urine Blood (Negative) Urine Nitrite (Negative) Urine Bilirubin (Negative) Urine Urobilinogen (Up to 0.2) mg/dL Ur Leukocyte Esterase (Negative) Urine RBC (0-2) HPF Urine WBC (0-5) HPF Ur Epithelial Cells (Negative) HPF Urine Crystals (Negative) HPF Urine Bacteria (Negative) HPF Urine Casts (Negative) LPF Urine Mucus (Negative) Ur Culture Indicated? Urine Glucose (Negative) mg/dL COVID-19 Source SARS-CoV-2 (PCR) (Negative) Influenza Type A (PCR) (Negative) Influenza Type B (PCR) (Negative) RSV (PCR) (Negative) Range/Units 11/25/24 11/25/24 11/25/24 15:55 16:57 17:24 WBC (4.4-10.8) 10^3/uL RBC (3.93-5.22) 10^6/uL Hgb (11.2-15.7) g/dL Hct (36.0-46.0) % MCV (80-95) fL MCH (27.0-33.0) pg MCHC (32.0-36.0) % RDW (11.7-14.6) % Plt Count (130-400) 10^3/uL MPV (8.0-11.0) fL Immature Gran % % Neutrophils % % Lymphocytes % % Monocytes % % Eosinophils % % Basophils % % Nucleated RBC % (0.0-0.3) % Absolute Neutrophils (1.2-6.7) 10^3/uL Absolute Lymphocytes (1.2-3.4) 10^3/uL Absolute Monocytes (0.1-0.8) 10^3/uL Absolute Eosinophils (0.0-0.7) 10^3/uL Absolute Basophils (0.0-0.2) 10^3/uL VBG pH (7.31-7.41) 7.41 VBG pCO2 (41-51) mmHg 43 VBG pO2 mmHg 31 VBG HCO3 (23-28) mmol/L 27 VBG Total CO2 (24-29) mmol/L 24 VBG O2 Saturation % 65 VBG Base Excess (-2-3) mmol/L 3 VBG Lactate (<or=2.0) mmol/L 0.9 Sodium (136-145) mmol/L Potassium (3.5-5.1) mmol/L Chloride (98-107) mmol/L Carbon Dioxide (21.0-32.0) mmol/L Anion Gap (3-11) mmol/L BUN (7-18) mg/dL Creatinine (0.55-1.02) mg/dL Est GFR (CKD-EPI 2020) (mL/min/1.73m2) Glucose (74-106) mg/dL Calcium (8.5-10.1) mg/dL Magnesium (1.8-2.4) mg/dL Total Bilirubin (0.2-1.0) mg/dL AST (15-37) U/L ALT (14-59) U/L Alkaline Phosphatase (46-116) U/L Troponin I (<or=51) ng/L 21 Total Protein (6.4-8.2) g/dL Albumin (3.4-5.0) g/dL Lipase (<78) U/L TSH (0.36-3.74) uIU/mL Urine Color (Yellow) Yellow Urine Clarity (Clear) Clear Urine pH (5-8) 5.5 Ur Specific [place] (1.005-1.025) 1.015 Urine Protein (Neg-Trace) mg/dL Negative Urine Ketones (Negative) mg/dL Negative Urine Blood (Negative) Trace-lysed H Urine Nitrite (Negative) Negative Urine Bilirubin (Negative) Negative Urine Urobilinogen (Up to 0.2) mg/dL 0.2 Ur Leukocyte Esterase (Negative) Negative Urine RBC (0-2) HPF 0-2 Urine WBC (0-5) HPF Negative Ur Epithelial Cells (Negative) HPF Rare Urine Crystals (Negative) HPF Negative Urine Bacteria (Negative) HPF Rare Urine Casts (Negative) LPF Negative Urine Mucus (Negative) Trace Ur Culture Indicated? No Urine Glucose (Negative) mg/dL Negative COVID-19 Source SARS-CoV-2 (PCR) (Negative) Influenza Type A (PCR) (Negative) Influenza Type B (PCR) (Negative) RSV (PCR) (Negative) Range/Units 11/25/24 18:49 WBC (4.4-10.8) 10^3/uL RBC (3.93-5.22) 10^6/uL Hgb (11.2-15.7) g/dL Hct (36.0-46.0) % MCV (80-95) fL MCH (27.0-33.0) pg MCHC (32.0-36.0) % RDW (11.7-14.6) % Plt Count (130-400) 10^3/uL MPV (8.0-11.0) fL Immature Gran % % Neutrophils % % Lymphocytes % % Monocytes % % Eosinophils % % Basophils % % Nucleated RBC % (0.0-0.3) % Absolute Neutrophils (1.2-6.7) 10^3/uL Absolute Lymphocytes (1.2-3.4) 10^3/uL Absolute Monocytes (0.1-0.8) 10^3/uL Absolute Eosinophils (0.0-0.7) 10^3/uL Absolute Basophils (0.0-0.2) 10^3/uL VBG pH (7.31-7.41) VBG pCO2 (41-51) mmHg VBG pO2 mmHg VBG HCO3 (23-28) mmol/L VBG Total CO2 (24-29) mmol/L VBG O2 Saturation % VBG Base Excess (-2-3) mmol/L VBG Lactate (<or=2.0) mmol/L Sodium (136-145) mmol/L Potassium (3.5-5.1) mmol/L Chloride (98-107) mmol/L Carbon Dioxide (21.0-32.0) mmol/L Anion Gap (3-11) mmol/L BUN (7-18) mg/dL Creatinine (0.55-1.02) mg/dL Est GFR (CKD-EPI 2020) (mL/min/1.73m2) Glucose (74-106) mg/dL Calcium (8.5-10.1) mg/dL Magnesium (1.8-2.4) mg/dL Total Bilirubin (0.2-1.0) mg/dL AST (15-37) U/L ALT (14-59) U/L Alkaline Phosphatase (46-116) U/L Troponin I (<or=51) ng/L Total Protein (6.4-8.2) g/dL Albumin (3.4-5.0) g/dL Lipase (<78) U/L TSH (0.36-3.74) uIU/mL Urine Color (Yellow) Urine Clarity (Clear) Urine pH (5-8) Ur Specific [place] (1.005-1.025) Urine Protein (Neg-Trace) mg/dL Urine Ketones (Negative) mg/dL Urine Blood (Negative) Urine Nitrite (Negative) Urine Bilirubin (Negative) Urine Urobilinogen (Up to 0.2) mg/dL Ur Leukocyte Esterase (Negative) Urine RBC (0-2) HPF Urine WBC (0-5) HPF Ur Epithelial Cells (Negative) HPF Urine Crystals (Negative) HPF Urine Bacteria (Negative) HPF Urine Casts (Negative) LPF Urine Mucus (Negative) Ur Culture Indicated? Urine Glucose (Negative) mg/dL COVID-19 Source Nasopharynx SARS-CoV-2 (PCR) (Negative) Negative Influenza Type A (PCR) (Negative) Negative Influenza Type B (PCR) (Negative) Negative RSV (PCR) (Negative) Negative Medical Decision Making Creatinine mildly elevated at 1.3, BUN 19, Magnesium 1.6 (supplemented with 1 g). Remainder of labs and urinalysis normal. Negative lactate. CT abdomen and pelvis, chest x-ray without acute abnormality. Initial Assessment: 59-year-old female with history of adrenal insufficiency/Hugo's disease and hypothyroidism presents with nausea, vomiting, fever, and chills for the past 24 hours. Patient appears unwell, alert but tired, oriented x 3, no rashes or lesions, no meningismus, sinus tachycardia, lungs clear to auscultation, creatinine mildly elevated at 1.3, BUN of 19, mag 1.6, supplemented with 1 g of magnesium. Remainder of labs and urinalysis do not show evidence of acute abnormality. ED Course: - Chest x-ray without acute abnormality. - CT abdomen and pelvis per radiology interpretation, my review does not show evidence of acute abnormality. - Received 100 mg hydrocortisone on arrival for stress dose steroid. - Received Compazine. - Received 2.5 L of fluid. - MAP remained at 47, initiated norepinephrine. - Two large bore peripheral IVs, short course anticipated. - Blood cultures pending. - Lyme titers pending. - Lactate negative. - Case discussed with admitting hospitalist, will admit patient to a service. - Reviewed [facility] documentation and medical history for 10 minutes. Final Assessment: Patient with nausea, vomiting, fever, and chills for the past 24 hours. Received Compazine, fluids, hydrocortisone, and norepinephrine. No obvious bacterial infection, blood cultures and Lyme titers pending. Patient to be admitted. Alert and oriented, tired appearance, feeling improved. Clinical Impression: - Nausea and vomiting - Adrenal insufficiency/Hugo's disease - Hypothyroidism Disposition: - Admission: Patient will be admitted to a service. MDM Components Evaluation: - Number of Differential Diagnoses or Management Options: Nausea and vomiting, adrenal insufficiency/Hugo's disease, hypothyroidism. - Amount and Complexity of Data Reviewed: Chest x-ray, CT abdomen and pelvis, blood cultures, Lyme titers, lactate, [facility] documentation and medical history. - Risk of Complication and Morbidity or Mortality: High risk due to hypotension, adrenal insufficiency, and potential infection. Quality:SDOH Health Related Social Needs: No Data to Display Critical Care Time Critical Care Time Attestation: 50 minutes of critical care time secondary to adrenal insufficiency with SIRS hypotension and shock, requiring pressors fluids telemetry monitoring diagnostic imaging interpretation review diagnostic labs interpretation review admission to the ICU, antibiotics IV steroids PFSH All Active Problems (Updated 11/25/24 @ 21:09 by ZANA Prajapati) Oral thrush (Acute) Acute adrenal insufficiency (Acute) Shock (Acute) SIRS (systemic inflammatory response syndrome) (Acute) Depression (Chronic) Hypotension, chronic (Chronic) Hypothyroidism (acquired) (Chronic) Oral thrush (Acute) Adrenal insufficiency (Acute) Sepsis (Acute) Social History Smoking/Tobacco Use Status: Former Tobacco Use Quit Date: 11/25/86 Tobacco: How many years used: 3 Smoking risk assessment performed?: Yes Alcohol Intake: former Substance use type: does not use Housing: apartment Do you feel safe at home: Yes Do you feel safe in your relationship?: Yes
[2024-11-25] MEDS: DOXYCYCLINE 100 MG in Normal Saline 100 ML IVPB (22:14)
[2024-11-25] MEDS: Normal Saline 1,000 ML 150 ML IV (22:14)
[2024-11-25] MEDS: Enoxaparin 40 MG/0.4 ML SYR SC (22:15)
[2024-11-25] MEDS: Normal Saline Flush 10 ML SYR IVP (22:17)
[2024-11-25] MEDS: Nystatin 500000 UNITS/5 ML SUSP 5ML CUP 1000000 UNITS PO (22:22)
[2024-11-25] MEDS: MAGNESIUM SULFATE 2 GM/50 ML BAG IV_INF (22:22)
[2024-11-26] VITALS (103 sets, daily range): BP systolic 88–124; BP diastolic 52–68; PULSE 53–90; RESP 12–33; TEMP 36.7–38; O2SAT 95–100
[2024-11-26] MEDS: Normal Saline 1,000 ML 150 ML IV ×3 (05:48→19:38)
[2024-11-26] MEDS: cefTRIAXone 2 GM/50 ML BAG IVPB ×2 (05:49→18:32)
[2024-11-26] MEDS: Levothyroxine 112 MCG TAB PO (05:53)
[2024-11-26] MEDS: Acetaminophen 325 MG TAB PO (05:57)
[2024-11-26 07:06] LABS: HCT 34.4 % (36.0-46.0); HGB 11.4 g/dL (11.2-15.7); MCH 29.2 pg (27.0-33.0); MCHC 33.1 % (32.0-36.0); MCV 88 fL (80-95); MPV 9.4 fL (8.0-11.0); Platelet Count 219 10^3/uL (130-400); RBC 3.91 10^6/uL (3.93-5.22); RDW 12.3 % (11.7-14.6); RDW-SD 39.6 fL; WBC 11.71 10^3/uL (4.4-10.8)
[2024-11-26 07:33] LABS: ALT 27 U/L (14-59); AST 35 U/L (15-37); Albumin 2.9 g/dL (3.4-5.0); Alkaline Phosphatase 51 U/L (46-116); Anion Gap 7.4 mmol/L (3-11); BUN 12 mg/dL (7-18); Bilirubin, Total 0.4 mg/dL (0.2-1.0); CO2 25.6 mmol/L (21.0-32.0); CREATININE 0.9 mg/dL (0.55-1.02); Chloride 105 mmol/L (98-107); Estimated GFR 73.64 (mL/min/1.73m2); Glucose 112 mg/dL (74-106); Potassium 3.6 mmol/L (3.5-5.1); Sodium 138 mmol/L (136-145); Total Protein 6.3 g/dL (6.4-8.2)
[2024-11-26 07:40] LABS: Magnesium 1.8 mg/dL (1.8-2.4)
[2024-11-26] MEDS: Nystatin 500000 UNITS/5 ML SUSP 5ML CUP 1000000 UNITS PO ×3 (08:00→21:54)
[2024-11-26] MEDS: Sertraline 100 MG TAB PO (08:04)
[2024-11-26] MEDS: Cholecalciferol (Vitamin D3) 1,000 UNIT TAB 1000 UNITS PO (08:04)
[2024-11-26] MEDS: Hydrocortisone SOD SUC. 100 MG VIAL IVP ×3 (08:04→23:03)
[2024-11-26] MEDS: Normal Saline Flush 10 ML SYR IVP ×2 (08:07→21:55)
[2024-11-26] MEDS: Fludrocortisone 0.1 MG TAB PO (08:54)
[2024-11-26] MEDS: Cyanocobalamin 100 MCG TABLET PO (08:56)
[2024-11-26] MEDS: DOXYCYCLINE 100 MG in Normal Saline 100 ML IVPB (09:50)
--- NOTE | 2024-11-26 10:09 | INITIAL_ITS ---
Date of service: 11/26/24 Time of Service: 10:09 Care Management Initial Assmt Initial Assessment Reason for Hospitalization: Addisons Disease Functional Status/Living Situation Patient Presentation: Allison was sitting up in bed when CM met with her. She was pleasant in interaction and easily engaged with CM. Allison was admitted with sepsis. She was tachycardic and hypotensive and is requiring a nor-epinephrine drip to maintain her SBP>90. She stated that she is feeling a little better but has been very weak and fatigued. She shared that she currently lives in [place] but will be moving in with her boyfriend who lives in [facility] this month. Allison has one child, a son named Sancho, who lives in [place]. Allison talked a bit about Sancho and she is clearly very proud of him. He is working at [employer] and plans to attend medical school. Allison has been working at [email or web address] in [place] but has given her notice. She hopes to be able to do [employer] when she moves. She is independent at baseline and does not receive any services. Allison currently has healthcare insurance but will lose coverage at the end of the month. CM sent a referral to [facility] for assistance with insurance. She may be eligible for Medicaid even though she receives disability payments of about $1400/month. CM will follow. Town of Residence: [place] Resides with: Alone Significant Other/Family: Out of area (son in [place]) Natural Supports: boyfriend Jaguar Bashir Employment Status: Employed Instrumental Activities of Daily Living (ADLs): Independent Medications Medication Management: No Issues/Barriers identified Physical Functioning/Mobility Assistive Device: none Advance Directives Advance Directives: Do you have an Advance Directive: Y 11/25/24 21:00 AD On File at [facility]: N 11/25/24 15:40 Date Asked 11/25/24 11/25/24 15:40 AD Date Reviewed COLST On File at [facility] COLST Date Scanned Code Status Resuscitation Status Full Code Portal Pt does not currently have a portal and education provided: Yes Insurance Coverage/Financial Issues Insurance: BC/BS Care Team Visit Care Team Role Provider Type Ricki Salgado MD [facility] STAFF PHYSICIAN Unknown Unknown Primary Care Provider STAFF PHYSICIAN ZANA Prajapati Emergency Provider PHYSICIANS FINANCIAL QUANTITATIVE ANALYST Esteban Whitehead Admit Provider NON-[facility] STAFF PHYSICIAN Attending Provider Discharge Potential Discharge Needs: PCP F/U Appt Anticipated Barriers to Discharge: None Identified Patient/Family Education Needs: Review discharge instructions, discuss Ask Me Three Transportation: Private vehicle Plan: Anticipate Allison will be discharged home with no new services when medically stable. She will follow up with her community providers and plan of care and transport with family. CM will continue to support Allison and her discharge planning needs. Social Determinants of Health Screening Social Determinants of health last assessed in clinic: 11/25/24 Will the Patient Participate in the Screening?: Declined to provide Do you worry about having a steady place to live?: no Problems where you live: no known problems In the past 12 months, have you had to go without electric, gas, oil or water in your home?: no Has lack of transportation kept you from medical appointments or from doing things needed for daily living?: no Has anyone in your life made you feel unsafe or unsupported?: no How hard is it for you to pay for the very basics like food, housing, medical care, and heating? Would you say it is:: Not hard at all Do you want help finding or keeping work or a job?: I do not need or want help If for any reason you need help with day-to-day activities such as bathing, preparing meals, shopping, managing finances, etc., do you get the help you need?: I don?t need any help How often do you feel lonely or isolated from those around you?: Never Do you speak a language other than Frisian at home?: No Comments: pt states she is tired at this time an is in the process of moving now PFS All Active Problems (Updated 11/26/24 @ 11:27 by Ricki Salgado) Hypomagnesemia (Acute) Acute kidney injury (Acute) DVT prophylaxis (Acute) Septic shock (Acute) Oral thrush (Acute) Acute adrenal insufficiency (Acute) Shock (Acute) SIRS (systemic inflammatory response syndrome) (Acute) Depression (Chronic) Hypotension, chronic (Chronic) Hypothyroidism (acquired) (Chronic) Oral thrush (Acute) Adrenal insufficiency (Chronic) Sepsis (Acute) Social History Smoking/Tobacco Use Status: Former Tobacco Use Quit Date: 11/25/86 Tobacco: How many years used: 3 Smoking risk assessment performed?: Yes Alcohol Intake: former Substance use type: does not use Housing: apartment Do you feel safe at home: Yes Do you feel safe in your relationship?: Yes
--- NOTE | 2024-11-26 11:16 | PGE_ITS ---
Date of Service Date of service: 11/26/24 Time of Service: 11:16 Assessment and Plan Assessment and plan (1) Septic shock: Status: Acute Assessment and plan: Fever, hypotension, ADELA in setting of + blood cultures. Hypotensive despite fluids, on norepinephrine ggt Clinically improved this morning GPC chains and sore throat suggest strep. Rapid negative, culture sent Right tonsil a little more prominent but doesn't look like peritonsilar abscess. Continue to monitor. On ceftriaxone/doxy. This is not typically sufficient for septic shock but she has improved on this so will continue for now. tick panel pending as well (2) Adrenal insufficiency: Status: Chronic Assessment and plan: With shock she is on hydrocortisone 100 mg IV every 8 hours along with chronic fludricortisone. Taper steroid once hypotension resolves. (3) Oral thrush: Start date: 11/25/24 Status: Acute Assessment and plan: I'm not sure this is thrush vs bacterial pharyngitis. Can continue nystatin oral suspension swish and swallow 3 times daily. (4) Depression: Status: Chronic Assessment and plan: Continue outpatient sertraline. (5) DVT prophylaxis: Status: Acute Assessment and plan: enoxaparin (6) Acute kidney injury: Status: Acute Assessment and plan: Improved after hydration, c/w pre-renal. Follow (7) Hypomagnesemia: Status: Acute Assessment and plan: replaced, improved, follow daily Subjective Subjective Patient reports: feels better, tolerating a regular diet and voiding w/o difficulty; denies diarrhea, nausea, vomiting, shortness of breath or fever Interval history since last seen: Events: blood cultures GPC chains. She feels better this morning, ate well, was hungry. Throat still a little sore more on right. Swallowing fine Exam Narrative Exam Narrative: General Appearance: Alert and oriented x3, no acute distress. Normal voice. HEENT: MMM, OP red with 2+ tonsils, slightly larger on right. neck supple nl ROM but + right LAD anterior cervical Respiratory: Lungs clear to auscultation, nl effort Cardiovascular: Sinus tachycardia, no murmur rub. ABD: soft, NT/ND Ext: no c/c/e Skin: No rashes or lesions. Objective Last Vital Signs Temp 37.2 C 11/26/24 10:16 Pulse 75 11/26/24 10:16 Resp 15 11/26/24 08:40 BP 99/56 L 11/26/24 10:16 Pulse Ox 96 11/26/24 08:40 Laboratory Results - last 24 hr 11/25/24 11/25/24 11/25/24 15:53 15:53 15:53 WBC 9.25 RBC 5.23 H Hgb 15.5 Hct 46.5 H MCV 89 MCH 29.6 MCHC 33.3 RDW 12.4 Plt Count 250 MPV 9.3 Immature Gran % 0.3 Neutrophils % 63.5 Lymphocytes % 22.7 Monocytes % 11.8 Eosinophils % 0.9 Basophils % 0.8 Nucleated RBC % 0.0 Absolute Neutrophils 5.88 Absolute Lymphocytes 2.10 Absolute Monocytes 1.09 H Absolute Eosinophils 0.08 Absolute Basophils 0.07 VBG pH VBG pCO2 VBG pO2 VBG HCO3 VBG Total CO2 VBG O2 Saturation VBG Base Excess VBG Lactate Sodium 134 L Potassium 3.6 Chloride 97 L Carbon Dioxide 28.4 Anion Gap 8.6 BUN 19 H Creatinine 1.3 H Est GFR (CKD-EPI 2020) 47.37 Glucose 109 H Calcium 9.6 Magnesium 1.6 L Cancelled Total Bilirubin 0.9 AST 32 ALT 33 Alkaline Phosphatase 69 Troponin I 10 Total Protein 8.5 H Albumin 4.3 Lipase 60 TSH 1.00 Cancelled Urine Color Urine Clarity Urine pH Ur Specific Appling Urine Protein Urine Ketones Urine Blood Urine Nitrite Urine Bilirubin Urine Urobilinogen Ur Leukocyte Esterase Urine RBC Urine WBC Ur Epithelial Cells Urine Crystals Urine Bacteria Urine Casts Urine Mucus Ur Culture Indicated? Urine Glucose COVID-19 Source SARS-CoV-2 (PCR) Influenza Type A (PCR) Influenza Type B (PCR) RSV (PCR) 11/25/24 11/25/24 11/25/24 15:55 16:57 17:24 WBC RBC Hgb Hct MCV MCH MCHC RDW Plt Count MPV Immature Gran % Neutrophils % Lymphocytes % Monocytes % Eosinophils % Basophils % Nucleated RBC % Absolute Neutrophils Absolute Lymphocytes Absolute Monocytes Absolute Eosinophils Absolute Basophils VBG pH 7.41 VBG pCO2 43 VBG pO2 31 VBG HCO3 27 VBG Total CO2 24 VBG O2 Saturation 65 VBG Base Excess 3 VBG Lactate 0.9 Sodium Potassium Chloride Carbon Dioxide Anion Gap BUN Creatinine Est GFR (CKD-EPI 2020) Glucose Calcium Magnesium Total Bilirubin AST ALT Alkaline Phosphatase Troponin I 21 Total Protein Albumin Lipase TSH Urine Color Yellow Urine Clarity Clear Urine pH 5.5 Ur Specific Appling 1.015 Urine Protein Negative Urine Ketones Negative Urine Blood Trace-lysed H Urine Nitrite Negative Urine Bilirubin Negative Urine Urobilinogen 0.2 Ur Leukocyte Esterase Negative Urine RBC 0-2 Urine WBC Negative Ur Epithelial Cells Rare Urine Crystals Negative Urine Bacteria Rare Urine Casts Negative Urine Mucus Trace Ur Culture Indicated? No Urine Glucose Negative COVID-19 Source SARS-CoV-2 (PCR) Influenza Type A (PCR) Influenza Type B (PCR) RSV (PCR) 11/25/24 11/26/24 11/26/24 18:49 06:45 07:00 WBC 11.71 H RBC 3.91 L Hgb 11.4 D Hct 34.4 L MCV 88 MCH 29.2 MCHC 33.1 RDW 12.3 Plt Count 219 MPV 9.4 Immature Gran % Neutrophils % Lymphocytes % Monocytes % Eosinophils % Basophils % Nucleated RBC % Absolute Neutrophils Absolute Lymphocytes Absolute Monocytes Absolute Eosinophils Absolute Basophils VBG pH VBG pCO2 VBG pO2 VBG HCO3 VBG Total CO2 VBG O2 Saturation VBG Base Excess VBG Lactate Sodium 138 Potassium 3.6 Chloride 105 Carbon Dioxide 25.6 Anion Gap 7.4 BUN 12 Creatinine 0.9 Est GFR (CKD-EPI 2020) 73.64 Glucose 112 H Calcium 8.0 L Magnesium 1.8 Total Bilirubin 0.4 AST 35 ALT 27 Alkaline Phosphatase 51 Troponin I Total Protein 6.3 L Albumin 2.9 L Lipase TSH Urine Color Urine Clarity Urine pH Ur Specific Appling Urine Protein Urine Ketones Urine Blood Urine Nitrite Urine Bilirubin Urine Urobilinogen Ur Leukocyte Esterase Urine RBC Urine WBC Ur Epithelial Cells Urine Crystals Urine Bacteria Urine Casts Urine Mucus Ur Culture Indicated? Urine Glucose COVID-19 Source Nasopharynx SARS-CoV-2 (PCR) Negative Influenza Type A (PCR) Negative Influenza Type B (PCR) Negative RSV (PCR) Negative Time Spent with Patient Time Spent with Patient: >50 minutes Time was spent: preparing to see the patient(eg.review tests), obtaining and/or reviewing separately otained hiistory, ordering medications,tests, procedures, referring, communicating with other health patient care manager, indepentently interpreting results, counseling the patient and care coordination
[2024-11-26] MEDS: DOXYCYCLINE 100 MG in Normal Saline 100 ML 200 MG IVPB (21:54)
[2024-11-26] MEDS: Enoxaparin 40 MG/0.4 ML SYR SC (21:55)
[2024-11-26] MEDS: Melatonin 3 MG TAB PO (23:02)
[2024-11-27] VITALS (63 sets, daily range): BP systolic 78–118; BP diastolic 28–71; PULSE 60–87; RESP 8–34; TEMP 36.5–37.6; O2SAT 97–100
[2024-11-27] MEDS: cefTRIAXone 2 GM/50 ML BAG IVPB ×2 (05:36→18:25)
[2024-11-27] MEDS: Levothyroxine 112 MCG TAB PO (05:37)
[2024-11-27 07:10] LABS: Abs Immature Grans 0.07 10^3/uL (0.0-0.06); Absolute Basophil Count 0.02 10^3/uL (0.0-0.2); Absolute Lymphocyte Count 0.93 10^3/uL (1.2-3.4); Absolute Monocyte Count 0.33 10^3/uL (0.1-0.8); Absolute Neutrophil Count 8.56 10^3/uL (1.2-6.7); Basophils % 0.2 %; HCT 32.4 % (36.0-46.0); HGB 10.7 g/dL (11.2-15.7); Immature Grans % 0.7 %; Lymphocytes % 9.4 %; MCH 29.3 pg (27.0-33.0); MCV 89 fL (80-95); MPV 10.2 fL (8.0-11.0); Monocytes % 3.3 %; Neutrophils % 86.4 %; Platelet Count 207 10^3/uL (130-400); RBC 3.65 10^6/uL (3.93-5.22); RDW 12.5 % (11.7-14.6); WBC 9.91 10^3/uL (4.4-10.8)
[2024-11-27 07:21] LABS: Magnesium 1.6 mg/dL (1.8-2.4)
[2024-11-27 07:42] LABS: ALT 38 U/L (14-59); AST 31 U/L (15-37); Albumin 2.8 g/dL (3.4-5.0); Alkaline Phosphatase 48 U/L (46-116); Anion Gap 9.8 mmol/L (3-11); BUN 10 mg/dL (7-18); Bilirubin, Total 0.3 mg/dL (0.2-1.0); CO2 25.2 mmol/L (21.0-32.0); CREATININE 0.7 mg/dL (0.55-1.02); Calcium 8.3 mg/dL (8.5-10.1); Chloride 110 mmol/L (98-107); Estimated GFR 99.57 (mL/min/1.73m2); Glucose 106 mg/dL (74-106); Potassium 3.3 mmol/L (3.5-5.1); Sodium 145 mmol/L (136-145); Total Protein 6.1 g/dL (6.4-8.2)
--- NOTE | 2024-11-27 08:50 | PDOC.CMPRO ---
Date of service: 11/27/24 Time of Service: 08:50 Care Management Progress Note Progress Note Text Progress Note Text: Allison was sitting up in bed when CM met with her. She was smiling and appeared to be in good spirits. Allison reported that she is feeling better today. her blood pressure has stabilized and the nor-epinephrine drip has been discontinued. Allison is growing gram positive cocci in her blood cultures but the organism has not been identified nor are susceptibilities available. When CM met with Allison yesterday she identified healthcare insurance as a major concern. While she has insurance now, coverage will end at the end of November when she leaves her current place of employment. She does not have a new job or insurance lined up yet. CM made a referral to [facility] yesterday and Rona was able to have a phone conversation with Allison today. They plan to meet towards the end of the month when Allison relocates to [facility] and becomes eligible for [place] Medicaid. Based on preliminary information, it appears Allison may qualify. Discharge Potential Discharge Needs: PCP F/U Appt Anticipated Barriers to Discharge: None Identified Patient/Family Education Needs: Review discharge instructions, discuss Ask Me Three Transportation: Private vehicle Plan: Anticipate Allison will be discharged home with no new services when medically stable. She will follow up with her community providers and plan of care and transport with family. CM will continue to support Allison and her discharge planning needs. Social Determinants of Health Screening Social Determinants of health last assessed in clinic: 11/25/24 Will the Patient Participate in the Screening?: Declined to provide Do you worry about having a steady place to live?: no Problems where you live: no known problems In the past 12 months, have you had to go without electric, gas, oil or water in your home?: no Has lack of transportation kept you from medical appointments or from doing things needed for daily living?: no Has anyone in your life made you feel unsafe or unsupported?: no How hard is it for you to pay for the very basics like food, housing, medical care, and heating? Would you say it is:: Not hard at all Do you want help finding or keeping work or a job?: I do not need or want help If for any reason you need help with day-to-day activities such as bathing, preparing meals, shopping, managing finances, etc., do you get the help you need?: I don?t need any help How often do you feel lonely or isolated from those around you?: Never Do you speak a language other than Armenian at home?: No Comments: pt states she is tired at this time an is in the process of moving now
[2024-11-27] MEDS: Nystatin 500000 UNITS/5 ML SUSP 5ML CUP 1000000 UNITS PO ×3 (08:54→20:24)
[2024-11-27] MEDS: Fludrocortisone 0.1 MG TAB PO (08:55)
[2024-11-27] MEDS: Sertraline 100 MG TAB PO (08:55)
[2024-11-27] MEDS: Cholecalciferol (Vitamin D3) 1,000 UNIT TAB 1000 UNITS PO (08:55)
[2024-11-27] MEDS: Hydrocortisone SOD SUC. 100 MG VIAL IVP (08:56)
[2024-11-27] MEDS: Normal Saline Flush 10 ML SYR IVP ×5 (08:56→20:24)
[2024-11-27] MEDS: Cyanocobalamin 100 MCG TABLET PO (08:56)
--- NOTE | 2024-11-27 09:28 | NUR.NOTE ---
in chart to check the status of an ecg Nursing Note:
[2024-11-27] MEDS: DOXYCYCLINE 100 MG in Normal Saline 100 ML IVPB ×2 (09:39→22:41)
--- NOTE | 2024-11-27 09:56 | PGE_ITS ---
Date of Service Date of service: 11/27/24 Time of Service: 09:56 Assessment and Plan Assessment and plan (1) Septic shock: Status: Acute Assessment and plan: -patient met criteria for septic showck with temp 100.8oF, pulse of 124bpm, source of infection likely pharyngitis with sore throat and CPGs in chains in prelim Bcx, ADELA, and hypotension despite fluid resusitation requiring initiation of levophed -levo off as of 19:00 on 11/26 -On ceftriaxone/doxy; This is not typically sufficient for septic shock but she has improved on this so will continue for now. -f/u final Bcx results and transition to appropriate oral abx regimen (2) Adrenal insufficiency: Status: Chronic Assessment and plan: -With shock she is on hydrocortisone 100 mg IV every 8 hours -continue homefludricortisone. -will taper steroids now that patient is off of levo (3) Oral thrush: Start date: 11/25/24 Status: Acute Assessment and plan: -not sure this is thrush vs bacterial pharyngitis. - continue nystatin oral suspension swish and swallow 3 times daily. (4) Depression: Status: Chronic Assessment and plan: -Continue outpatient sertraline. (5) DVT prophylaxis: Status: Acute Assessment and plan: -enoxaparin (6) Acute kidney injury: Status: Acute Assessment and plan: -Improved after hydration, c/w pre-renal. -f/u AM BMP (7) Hypomagnesemia: Status: Acute Assessment and plan: -replaced, improved, follow daily Subjective Subjective Interval history since last seen: Patient states that she is feeling better this morning. She understands the plan to wait for final blood culture results prior to transitioning to oral antibiotic regimen and discharge. Otherwise she has no other complaints or concerns at this time. Exam Narrative Exam Narrative: Well-appearing female sitting up in bed in no acute distress, ANO x 4, heart regular rhythm, lungs clear to auscultation bilaterally, abdomen soft, nontender, nondistended Objective Last Vital Signs Temp 98.1 F 11/27/24 08:45 Pulse 81 11/27/24 09:01 Resp 14 11/27/24 09:01 BP 104/66 11/27/24 09:01 Pulse Ox 99 11/26/24 21:30 Laboratory Results - last 24 hr 11/27/24 05:30 WBC 9.91 RBC 3.65 L Hgb 10.7 L Hct 32.4 L MCV 89 MCH 29.3 MCHC 33.0 RDW 12.5 Plt Count 207 MPV 10.2 Immature Gran % 0.7 Neutrophils % 86.4 Lymphocytes % 9.4 Monocytes % 3.3 Eosinophils % 0.0 Basophils % 0.2 Nucleated RBC % 0.0 Absolute Neutrophils 8.56 H Absolute Lymphocytes 0.93 L Absolute Monocytes 0.33 Absolute Eosinophils 0.00 Absolute Basophils 0.02 Sodium 145 Potassium 3.3 L Chloride 110 H Carbon Dioxide 25.2 Anion Gap 9.8 BUN 10 Creatinine 0.7 Est GFR (CKD-EPI 2020) 99.57 Glucose 106 Calcium 8.3 L Magnesium 1.6 L Total Bilirubin 0.3 AST 31 ALT 38 Alkaline Phosphatase 48 Total Protein 6.1 L Albumin 2.8 L Time Spent with Patient Time Spent with Patient: >50 minutes Time was spent: preparing to see the patient(eg.review tests), obtaining and/or reviewing separately otained hiistory, ordering medications,tests, procedures, referring, communicating with other health gericare aide, indepentently interpreting results, counseling the patient and care coordination
[2024-11-27 11:26] LABS: Lyme Ab w Rflx to Lyme Confirm Negative (Negative)
--- NOTE | 2024-11-27 15:10 | CHAPLAIN ---
Allison was resting in bed when I visited. She was pleasant and engaged in a conversation. She said she's feeling better but will likely have to stay one more night. She lives in [place] but is in the process of moving to [facility] this month to live with her boyfriend. He has been in to visit and brought johns. I explained my role and offered support.
[2024-11-27] MEDS: Hydrocortisone SOD SUC. 100 MG VIAL 50 MG IVP ×2 (15:59→23:56)
--- NOTE | 2024-11-27 16:08 | PHA.REVIEW2 ---
Pharmacy Admission Review Admission Clinical Review Admission Pharmacy Review: Hypomagnesemia (Acute) Acute kidney injury (Acute) DVT prophylaxis (Acute) Septic shock (Acute) Oral thrush (Acute) Sepsis (Acute) adhesive tape Adverse Reaction (Intermediate, Unverified 11/25/24 19:01) Skin Rash Penicillins Adverse Reaction (Intermediate, Unverified 11/25/24 19:01) Skin Rash sulfamethoxazole (From Sulfamethoxazole-Trimethoprim) Adverse Reaction (Intermediate, Unverified 11/25/24 19:01) mouth sores trimethoprim (From Sulfamethoxazole-Trimethoprim) Adverse Reaction (Intermediate, Unverified 11/25/24 19:01) mouth sores Resuscitation Status Full Code Height 5 ft 7 in Weight 83.5 kg Comments Comments/Follow Ups: Magnesium still low needs to be monitored, other electrolytes also need monitoring Pharmacy Admission Review Renal Dosing Renal Dosing: BUN 10 mg/dL (7-18) 11/27/24 05:30 Creatinine 0.7 mg/dL (0.55-1.02) 11/27/24 05:30 Medications needing adjustments: Reviewed (Current medications okay. No adjustment necessary as of now. Crcl ~96 ml/min ) Anticoagulation Anticoagulation: Hgb 10.7 g/dL (11.2-15.7) L 11/27/24 05:30 Hct 32.4 % (36.0-46.0) L 11/27/24 05:30 Plt Count 207 10^3/uL (130-400) 11/27/24 05:30 Creatinine 0.7 mg/dL (0.55-1.02) 11/27/24 05:30 DVT Prophylaxis: Reviewed (Patient on active DVT prophylaxis) Medications: Enoxaparin (40mg/0.4ml SC Q24H) Opiate Usage Evaluate Pain Scale/Pains Meds: N/A Relevant Labs Relevant Labs: Sodium 145 mmol/L (136-145) 11/27/24 05:30 Potassium 3.3 mmol/L (3.5-5.1) L 11/27/24 05:30 Chloride 110 mmol/L (98-107) H 11/27/24 05:30 Magnesium 1.6 mg/dL (1.8-2.4) L 11/27/24 05:30 Electrolytes, C-Reactive P, ESR: Reviewed (Electrolytes not within normal limits, Potassium, sodium, calcium and magnesium still low) DM Control DM Control: N/A (Though patient's glucose previously was not within normal limit, she has no history of DM. Glucose as of today 106mg/dL) Cardiac Review Cardiac Review: Blood Pressure 111/67 Blood Pressure 105/62 Blood Pressure 115/68 Blood Pressure 115/68 Blood Pressure 107/68 Blood Pressure 78/28 BP, HR, EF%: Reviewed (Blood pressure getting stable as of today. Current BP 111/67mmHg, HR 69 beats/min) QTc Review QTc: Reviewed (QTc within normal limits. QTc 421 per EKG results at admission) Home Meds Home Med List reviewed: Reviewed Relevent Home Meds Not ordered & why?: Patient recently filled Anastrozole 1mg tabs to be taken daily but not ordered on current. Provider has been notified Current Meds Current Medication Order Review: Reviewed Pharmacy Antibiotic Review Pharmacy Antibiotic Activity: Reviewed, no change (Waiting on final cultures to determine status) Comments Comments/Follow Ups: Magnesium still low needs to be monitored, other electrolytes also need monitoring
[2024-11-27] MEDS: Acetaminophen 325 MG TAB PO (20:24)
[2024-11-27] MEDS: Melatonin 3 MG TAB PO (20:25)
[2024-11-27] MEDS: Enoxaparin 40 MG/0.4 ML SYR SC (22:40)
[2024-11-28] VITALS (18 sets, daily range): BP systolic 99–115; BP diastolic 64–70; PULSE 54–73; RESP 9–26; TEMP 36.2
--- NOTE | 2024-11-28 02:25 | NUR.NOTE ---
Pt sleeping soundly at present. vss.
--- NOTE | 2024-11-28 04:43 | NUR.NOTE ---
Awake to void on commmode. Independant. vs and assessment done at this time. In good spirits. Warm blankets given:
[2024-11-28] MEDS: Levothyroxine 112 MCG TAB PO (06:00)
[2024-11-28] MEDS: cefTRIAXone 2 GM/50 ML BAG IVPB (06:01)
[2024-11-28] MEDS: Normal Saline Flush 10 ML SYR IVP (06:01)
[2024-11-28 06:32] LABS: HCT 33.1 % (36.0-46.0); HGB 11.3 g/dL (11.2-15.7); MCH 30.2 pg (27.0-33.0); MCHC 34.1 % (32.0-36.0); MCV 89 fL (80-95); MPV 9.8 fL (8.0-11.0); Platelet Count 222 10^3/uL (130-400); RBC 3.74 10^6/uL (3.93-5.22); RDW 12.8 % (11.7-14.6); RDW-SD 41.7 fL; WBC 9.47 10^3/uL (4.4-10.8)
[2024-11-28 07:17] LABS: ALT 31 U/L (14-59); AST 17 U/L (15-37); Albumin 2.8 g/dL (3.4-5.0); Alkaline Phosphatase 51 U/L (46-116); Anion Gap 8.1 mmol/L (3-11); BUN 14 mg/dL (7-18); Bilirubin, Total 0.3 mg/dL (0.2-1.0); CO2 27.9 mmol/L (21.0-32.0); CREATININE 0.6 mg/dL (0.55-1.02); Calcium 8.8 mg/dL (8.5-10.1); Chloride 110 mmol/L (98-107); Estimated GFR 103.33 (mL/min/1.73m2); Glucose 98 mg/dL (74-106); Potassium 3.3 mmol/L (3.5-5.1); Sodium 146 mmol/L (136-145); Total Protein 6.2 g/dL (6.4-8.2)
[2024-11-28] MEDS: Cyanocobalamin 100 MCG TABLET PO (07:48)
[2024-11-28] MEDS: Cholecalciferol (Vitamin D3) 1,000 UNIT TAB 1000 UNITS PO (07:48)
[2024-11-28] MEDS: Fludrocortisone 0.1 MG TAB PO (07:48)
[2024-11-28] MEDS: Nystatin 500000 UNITS/5 ML SUSP 5ML CUP 1000000 UNITS PO (07:48)
[2024-11-28] MEDS: Sertraline 100 MG TAB PO (07:48)
--- NOTE | 2024-11-28 08:49 | PDOC.CMDIS ---
Date of service: 11/28/24 Time of Service: 08:49 LACE Index Scoring Tool Questions: Length of Stay (in days): 3 Was the patient admitted via the E.D.?: Yes E.D. Visits: 1 Answers: Total Score: 7 Risk of Readmission: Low Risk Care Management Discharge Plan Reason for Hospitalization: sepsis Discharge Plan: Allison will be discharged home with no new services. She will follow up with her community providers and plan of care and transport with her fianc?e. Patient/Family Education Needs: Review of discharge instructions, limitations, follow up plan and discuss Ask Me Three [facility] Health Related Social Needs: No Data to Display
--- NOTE | 2024-11-28 09:09 | W.PM.DS.N ---
Date of service: 11/28/24 Time of Service: 09:09 DS: Diagnosis Discharge Diagnosis (1) Septic shock: Status: Acute (2) Adrenal insufficiency: Status: Chronic (3) Oral thrush: Status: Acute (4) Depression: Status: Chronic (5) DVT prophylaxis: Status: Acute (6) Acute kidney injury: Status: Acute (7) Hypomagnesemia: Status: Acute Discharge Plan Disposition Patient Disposition: Home Condition: Good Discharge Details Reason For Visit: Sepsis with Shock,Adrenal Insufficiency,Hypomagnes Admit Date/Time: 11/25/24 19:15 Admit Provider: Esteban Whitehead Attending Provider: Esteban Whitehead Primary Care Provider: Unknown,Unknown Hospital Course Hospital Course: Patient initially presented with signs and symptoms consistent with septic shock secondary to presumed strep pharyngitis and bacteremia with 1 bottle of blood cultures positive for GPCs in chains. She was treated with stress dose steroids due to chronic adrenal insufficiency as well as norepi which resulted in significant improvment of her BP and norepi being discontinued within 24hrs of admission. She was treated with CTX and doxy which was transitioned to PO cefpodoxime and doxy for an additional 7 days at discharge. Home Meds and New Rx's Prescriptions: New cefpodoxime 200 mg Tablet 200 mg PO BID Qty: 14 0RF doxycycline hyclate 100 mg Capsule 100 mg PO BID Qty: 14 0RF Continued cholecalciferol (vitamin D3) 25 mcg (1,000 unit) capsule 25 mcg PO DAILY melatonin 3 mg capsule 3 mg PO HS PRN simethicone [Anti-Gas Ultra Strength] 180 mg capsule 180 mg PO DAILY PRN cyanocobalamin (vitamin B-12) 1,000 mcg capsule 125 mcg PO DAILY hydrocortisone 5 mg tablet 5 mg PO BID Patient Comments: TAKE 2 & 1/2 TABLETS BY MOUTH IN THE MORNING AND 1 TABLET IN THE AFTERNOON Rx Instructions: 2.5 tabs in AM, 1 tab at 2pm fludrocortisone 0.1 mg tablet 0.1 mg PO DAILY Patient Comments: TAKE ONE TABLET BY MOUTH EVERY DAY levothyroxine 112 mcg tablet 112 mcg PO DAILY Patient Comments: TAKE ONE TABLET BY MOUTH EVERY DAY sertraline 100 mg tablet 100 mg PO DAILY Patient Comments: TAKE ONE TABLET BY MOUTH EVERY DAY No Action calcium citrate 250 mg calcium tablet 600 mg PO DAILY B-complex with vitamin C Tablet 1 tab PO DAILY Discharge Instructions Referrals: Unknown,Unknown [Primary Care Provider] - 12/05/24 10:30 am Activity:: Activity as Tolerated Equipment/Supplies:: No Equipment Needed Diet:: As Tolerated Discharge Orders Discharge Orders: Discharge Order (Routine); Ordered 11/28/24 Ordered By: Rodrigue Woody Discharge Data Discharge Date/Time-TO BE ENTERED AT DEPARTURE: 11/28/24 09:30 DS: Summary Time Spent with Patient providing and/or coordinating discharge services: Greater than 30 minutes Status at Discharge Functional status at discharge: independent ambulation Overall status at discharge: patient is back to baseline Mental Status: mental status grossly normal Speech and Movement: speech and movement normal Mood: congruent mood Affect: normal affect Quality:SDOH Health Related Social Needs: No Data to Display Exam Narrative Exam Narrative: Well-appearing female sitting up in bed in no acute distress, ANO x 4, heart regular rhythm, lungs clear to auscultation bilaterally, abdomen soft, nontender, nondistended Psych Mental Status: mental status grossly normal Speech and Movement: speech and movement normal Mood: congruent mood Affect: normal affect DS: Data Vitals/I&O Vitals and I&O: Vital Signs Temperature 97.2 F L 11/28/24 04:27 Temperature Source Temporal Artery Scan 11/27/24 21:01 Pulse 64 11/28/24 07:56 Pulse 65 11/28/24 07:56 Respiratory Rate 12 11/28/24 07:56 Respiratory Effort Normal 11/25/24 20:40 Respiratory Depth Normal 11/25/24 17:14 Blood Pressure 100/69 11/28/24 07:56 Blood Pressure Mean 79 11/28/24 07:56 Blood Pressure Position Supine 11/25/24 20:40 Pulse Oximetry 97 11/27/24 20:01 Oxygen Delivery Method Room Air 11/27/24 21:01 Oxygen Flow Rate 0 11/27/24 21:01 Pain Level 0 11/26/24 21:11 Comment pt reports throat is the only source of pain that they are feeling and that its annoying. 11/27/24 08:45 Comment manual 11/25/24 18:30 Intake & Output 11/27/24 11/28/24 11/28/24 17:59 05:59 17:59 Intake Total 850 / 850 680 / 1530 Output Total 700 / 700 1700 / 2400 300 / 300 Balance 150 / 150 -1020 / -870 -300 / -300 Weight 186 lb 8.177 oz Intake: IV 250 / 250 160 / 410 Oral 600 / 600 520 / 1120 Output: Urine 700 / 700 1700 / 2400 300 / 300 Other: Urine Color Yellow Pale Yellow Yellow Urine Appearance Clear Clear Clear Urine Odor Normal None Stool Size Small Stool Characteristics Soft Formed Data Completed and Pending Labs on day of discharge: Labs from last 24 hours 11/28/24 11/25/24 05:48 15:53 WBC 9.47 RBC 3.74 L Hgb 11.3 Hct 33.1 L MCV 89 MCH 30.2 MCHC 34.1 RDW 12.8 Plt Count 222 MPV 9.8 Sodium 146 H Potassium 3.3 L Chloride 110 H Carbon Dioxide 27.9 Anion Gap 8.1 BUN 14 Creatinine 0.6 Est GFR (CKD-EPI 2020) 103.33 Glucose 98 Calcium 8.8 Total Bilirubin 0.3 AST 17 ALT 31 Alkaline Phosphatase 51 Total Protein 6.2 L Albumin 2.8 L Lyme Disease Antibody Negative Preliminary micro results at discharge 11/25/24 16:20 Blood Blood Culture - Preliminary Strep mitis/oralis 11/25/24 15:53 Blood Blood Culture - Preliminary NO GROWTH 48 HOURS PFSH All Active Problems (Updated 11/28/24 @ 09:09 by Rodrigue Woody MD) Hypomagnesemia (Acute) Acute kidney injury (Acute) DVT prophylaxis (Acute) Septic shock (Acute) Oral thrush (Acute) Acute adrenal insufficiency (Acute) Shock (Acute) SIRS (systemic inflammatory response syndrome) (Acute) Depression (Chronic) Hypotension, chronic (Chronic) Hypothyroidism (acquired) (Chronic) Oral thrush (Acute) Adrenal insufficiency (Chronic) Sepsis (Acute) Social History Smoking/Tobacco Use Status: Former Tobacco Use Quit Date: 11/25/86 Tobacco: How many years used: 3 Smoking risk assessment performed?: Yes Alcohol Intake: former Substance use type: does not use Housing: apartment Do you feel safe at home: Yes Do you feel safe in your relationship?: Yes Time Spent with Patient Time Spent with Patient: <45 minutes Time was spent: preparing to see the patient(eg.review tests), obtaining and/or reviewing separately otained hiistory, ordering medications,tests, procedures, referring, communicating with other health health care / medical job titles, indepentently interpreting results, counseling the patient and care coordination
[2024-11-28] MEDS: Doxycycline Hyclate 100 MG CAP PO (09:14)
[2024-11-28] MEDS: Cefpodoxime 200 MG TAB PO (09:14)
[2024-11-28 23:29] LABS: Anaplasma phagocytophilum Negative (Negative); B. miyamotoi PCR Negative (Negative); Babesia divergens/MO-1 Negative (Negative); Babesia duncani Negative (Negative); Babesia microti Negative (Negative); Ehrlichia chaffeensis Negative (Negative); Ehrlichia ewingii/canis Negative (Negative); Ehrlichia muris eauclairensis Negative (Negative)
== END 2024-11-28 09:30 | disposition home or self-care (01) | DRG 871 ==
LOC: ER 17:08 → ICU 20:51
PROVIDERS: Family Medicine; Admitting Provider Family Medicine; Emergency Provider Physician Assistant; Responsible Provider Family Medicine; Visit Provider Family Medicine
DX: A41.9 Sepsis, unspecified organism (principal); R65.21 Severe sepsis with septic shock; N17.9 Acute kidney failure, unspecified; B37.0 Candidal stomatitis; E27.1 Primary adrenocortical insufficiency; J02.0 Streptococcal pharyngitis; B95.4 Other streptococcus as the cause of diseases classified elsewhere; E03.9 Hypothyroidism, unspecified; I95.89 Other hypotension; E83.42 Hypomagnesemia; R11.2 Nausea with vomiting, unspecified; R51.9 Headache, unspecified; R53.83 Other fatigue
CPT/HCPCS: 00123; 36415; 36416; 80053; 82805; 82962; 83690; 85027; 87040; 87077; 87637; 87798; 93005; 96361; 96365; 96367; 96375; 99291; J1650; 71046; 74177; 81003; 81015; 83605; 83735; 84443; 84484; 85025; 86618; 87070; 87081; 87186; 93010; 99223; 99233; 99239; J0131; J0696; J0780; J1720; J3475; J3490